=== PATIENT | male | born 1940 | race Caucasian/White ===

== ENCOUNTER 2023-05-21 19:03 | Observation (INO) ==
[2023-05-21] MEDS ORDERED: CEFEPIME 2,000 MG/20 ML VIAL IV STA (20:17)
[2023-05-21] MEDS: SODIUM CHLORIDE 0.9% 1,000 ML IV SCH ×2 (20:20→21:32)
--- NOTE | 2023-05-21 20:20 | Emergency Department Note ---
Impression & Plan Generalized weakness, Fever, SIRS (systemic inflammatory response syndrome), Thrombocytopenia ED Provider Note HISTORY OF PRESENT ILLNESS: Patient is an 82-year-old male presenting with generalized weakness. Patient reportedly started feeling generally weak yesterday but reports that the weakness was profound today. States that this evening the patient was getting ready for bed when she found him slumped over next to the bed because he was too weak to get fully into it. Patient denies any chest pain or shortness of breath. No reported fevers at home per family. He was recently around a grandson who had rhinorrhea and a fever. Per EMS, the patient was hypoxic to 89% on room air. He does not normally wear supplemental oxygen at baseline. He denies any abdominal pain, nausea or vomiting. Denies any dysuria or hematuria. ROS: as above PHYSICAL EXAM: Constitutional: Patient appears in no acute distress. HENT: Head: Normocephalic and atraumatic. Eyes: EOMI, PERRL Ears: TM intact without erythema or bulging. External canals without erythema or discharge. Mouth/Throat: Mucous membranes moist. Neck: Trachea midline. Neck supple. Cardiovascular: Tachycardic with regular rhythm. No murmurs, rubs or gallops. Intact distal pulses. Pulmonary/Chest: No respiratory distress. Breath sounds clear and equal bilaterally. No wheezes or rales. Abdominal: Abdomen soft, no tenderness, rebound or guarding. Musculoskeletal: No edema, tenderness or deformity noted. Skin: Warm and dry. No rash, erythema, pallor or cyanosis Psychiatric: Appropriate mood and affect for situation. Neurological: Alert and keenly responsive. CN II-XII grossly intact, moving all extremities equally and fully. MDM: - Vitals signs showed hypertension, tachycardia and fever. - History obtained via patient. Patient presents with generalized weakness. Patient reports he was feeling generally unwell yesterday but reports that weakness significantly worsened throughout the day today. He reports that this evening he was trying to get into bed and was too weak to do so. He does not wear supplemental oxygen at baseline. Denies any significant chest pain or shortness of breath. Was recently around her grandson who had runny nose and a fever. - Chronic conditions affecting care: none - Differential diagnoses include, but are not limited to: viral syndrome; ACS; pneumonia; UTI; bacteremia; electrolyte abnormality - Order placed for continuous cardiac monitoring. At this time, monitor showed rate of 102 bpm with normal sinus rhythm, per my interpretation. - External medical records reviewed. EMS run sheet reviewed. Patient was noted to be hypoxic on room air to 89% and was placed on 2 L supplemental oxygen. - EKG interpreted by myself showed normal sinus rhythm. Rate 95 bpm. QTc 434. No acute ischemic changes. Noted to have a right bundle branch block. - Laboratory workup interpreted by myself showed normal WBC; thrombocytopenia (plt 96); elevated lactate (2.1); normal electrolytes; normal troponin; negative procalcitonin; negative Lyme and anaplasmosis - Blood cultures obtained - CXR showed possible RLL pneumonia, per my interpretation - Viral respiratory panel negative - VBG normal - UA negative for bacteria. - Given 2L NS in ER for fluid resuscitation. Based on patient's ideal body weight, sepsis fluid resuscitation is 2100 mL. Ordered 125 cc/hr for next 8 hours. - Given IV cefepime empirically. Given 1g IV tylenol for fever - Discussion was had with long term care phlebotomist about patient's case and need for admission - Hospitalist consulted for admission - Patient admitted to [] service for further evaluation and management. ASSESSMENT AND PLAN: Diagnosis: fever; SIRS; thrombocytopenia; generalized weakness Plan: admit Past Med/Surg History Social History Smoking Status: Former smoker Preferred Language: Occitan Feels Safe at Home: Yes Allergies Allergies Allergy/AdvReac Type Severity Reaction Status Date / Time sulfamethoxazole Allergy Intermediate Hives Verified 05/21/23 21:41 [From Bactrim] trimethoprim [From Bactrim] Allergy Intermediate Hives Verified 05/21/23 21:41 Penicillins AdvReac Severe JOINTS Verified 05/21/23 21:41 SWELLED, STIFFENED Home Meds Home Medications Medication Instructions Recorded Confirmed aspirin 81 mg tablet,delayed 81 mg PO HS 05/21/23 05/21/23 release calcium carbonate 600 mg-vitamin 1 tab PO DAILY 05/21/23 05/21/23 D3 10 mcg (400 unit) tablet (Calcium 600 + D(3)) cholecalciferol (vitamin D3) 25 25 mcg PO DAILY 05/21/23 05/21/23 mcg (1,000 unit) capsule (Vitamin D3) citalopram 20 mg tablet 20 mg PO QAM 05/21/23 05/21/23 enalapril maleate 20 mg tablet 20 mg PO QAM 05/21/23 05/21/23 levothyroxine 75 mcg tablet 75 mcg PO QAM 05/21/23 05/21/23 meloxicam 15 mg tablet 15 mg PO QAM 05/21/23 05/21/23 mesalamine 0.375 gram 1.5 g PO QAM 05/21/23 05/21/23 capsule,extended release 24 hr primidone 50 mg tablet 50 mg PO TID 05/21/23 05/21/23 tamsulosin 0.4 mg capsule 0.4 mg PO QAM 05/21/23 05/21/23 vitamin A-vitamin C-vit E-min 1 tab PO DAILY 05/21/23 05/21/23 tablet Results & Data (ED) Vital Signs Vital Signs - 24 hr 05/21/23 19:11 05/21/23 19:11 05/21/23 19:22 Temperature 39.4 C H 39.7 C H Temperature Source Oral Oral Pulse Rate 103 H 100 H Pulse Rate [Apical] 100 H Pulse Rhythm Pulse Rhythm [Apical] Regular Pulse Strength [Apical] Normal Respiratory Rate 18 18 Respiratory Effort / Characteristics Non-Labored Non-Labored Spontaneous Respiratory Depth Normal Normal Respiratory Pattern Regular Blood Pressure 148/87 H Blood Pressure [Right Arm] 148/87 H Blood Pressure Mean 107 Blood Pressure Mean [Right Arm] 107 Blood Pressure Position [Right Arm] Lying Pulse Oximetry 99 96 Oxygen Delivery Method Nasal Cannula Room Air Oxygen Flow Rate 2 Sepsis Recent Fever Within 48 Hours Yes Sepsis New/Unexplained Change in Mental Status No Sepsis Action Taken by Nursing No Action Required 05/21/23 20:19 05/21/23 20:19 05/21/23 20:30 Temperature 38.8 C H Temperature Source Oral Pulse Rate 97 H Pulse Rate [Apical] 94 H 97 H Pulse Rhythm Regular Pulse Rhythm [Apical] Regular Regular Pulse Strength [Apical] Normal Normal Respiratory Rate 16 16 16 Respiratory Effort / Characteristics Non-Labored Spontaneous Non-Labored Spontaneous Respiratory Depth Normal Normal Respiratory Pattern Regular Regular Blood Pressure Blood Pressure [Right Arm] 148/97 H 155/86 H Blood Pressure Mean Blood Pressure Mean [Right Arm] 114 109 Blood Pressure Position [Right Arm] Lying Lying Pulse Oximetry 93 93 93 Oxygen Delivery Method Room Air Room Air Room Air Oxygen Flow Rate Sepsis Recent Fever Within 48 Hours Sepsis New/Unexplained Change in Mental Status Sepsis Action Taken by Nursing 05/21/23 20:45 05/21/23 21:00 05/21/23 21:15 Temperature Temperature Source Pulse Rate Pulse Rate [Apical] 96 H 97 H 99 H Pulse Rhythm Pulse Rhythm [Apical] Regular Regular Regular Pulse Strength [Apical] Normal Normal Normal Respiratory Rate 16 16 16 Respiratory Effort / Characteristics Non-Labored Spontaneous Non-Labored Spontaneous Non-Labored Spontaneous Respiratory Depth Normal Normal Normal Respiratory Pattern Regular Regular Regular Blood Pressure Blood Pressure [Right Arm] 152/89 H 162/86 H 144/101 H Blood Pressure Mean Blood Pressure Mean [Right Arm] 110 111 115 Blood Pressure Position [Right Arm] Lying Lying Lying Pulse Oximetry 94 93 92 Oxygen Delivery Method Room Air Room Air Room Air Oxygen Flow Rate Sepsis Recent Fever Within 48 Hours Sepsis New/Unexplained Change in Mental Status Sepsis Action Taken by Nursing 05/21/23 21:30 05/21/23 21:45 05/21/23 22:00 Temperature 37.5 C Temperature Source Oral Pulse Rate Pulse Rate [Apical] 98 H 99 H 101 H Pulse Rhythm Pulse Rhythm [Apical] Regular Regular Regular Pulse Strength [Apical] Normal Normal Normal Respiratory Rate 16 16 15 Respiratory Effort / Characteristics Non-Labored Spontaneous Non-Labored Spontaneous Non-Labored Spontaneous Respiratory Depth Normal Normal Normal Respiratory Pattern Regular Regular Regular Blood Pressure Blood Pressure [Right Arm] 151/88 H 161/101 H 142/92 H Blood Pressure Mean Blood Pressure Mean [Right Arm] 109 121 108 Blood Pressure Position [Right Arm] Lying Lying Lying Pulse Oximetry 93 92 93 Oxygen Delivery Method Room Air Room Air Room Air Oxygen Flow Rate Sepsis Recent Fever Within 48 Hours Sepsis New/Unexplained Change in Mental Status Sepsis Action Taken by Nursing 05/21/23 22:15 05/21/23 22:30 05/21/23 22:45 Temperature Temperature Source Pulse Rate Pulse Rate [Apical] 99 H 100 H 103 H Pulse Rhythm Pulse Rhythm [Apical] Regular Regular Regular Pulse Strength [Apical] Normal Normal Normal Respiratory Rate 16 16 16 Respiratory Effort / Characteristics Non-Labored Spontaneous Non-Labored Spontaneous Non-Labored Spontaneous Respiratory Depth Normal Normal Normal Respiratory Pattern Regular Regular Regular Blood Pressure Blood Pressure [Right Arm] 145/98 H 157/95 H 150/95 H Blood Pressure Mean Blood Pressure Mean [Right Arm] 113 115 113 Blood Pressure Position [Right Arm] Lying Lying Lying Pulse Oximetry 94 91 91 Oxygen Delivery Method Room Air Room Air Room Air Oxygen Flow Rate Sepsis Recent Fever Within 48 Hours Sepsis New/Unexplained Change in Mental Status Sepsis Action Taken by Nursing 05/21/23 23:00 05/21/23 23:15 05/21/23 23:30 Temperature 38.2 C H Temperature Source Oral Pulse Rate 103 H Pulse Rate [Apical] 104 H 111 H Pulse Rhythm Pulse Rhythm [Apical] Regular Regular Pulse Strength [Apical] Normal Normal Respiratory Rate 16 16 Respiratory Effort / Characteristics Non-Labored Spontaneous Non-Labored Spontaneous Respiratory Depth Normal Normal Respiratory Pattern Regular Regular Blood Pressure Blood Pressure [Right Arm] 169/97 H 187/99 H Blood Pressure Mean Blood Pressure Mean [Right Arm] 121 128 Blood Pressure Position [Right Arm] Lying Lying Pulse Oximetry 92 91 Oxygen Delivery Method Room Air Room Air Oxygen Flow Rate Sepsis Recent Fever Within 48 Hours Sepsis New/Unexplained Change in Mental Status Sepsis Action Taken by Nursing Laboratory Data 05/21/23 20:10 05/21/23 20:10 Lab Results 05/21/23 05/21/23 05/21/23 Range/Units 19:17 19:22 20:10 WBC 5.96 (4.8-10.8) K/ul RBC 4.24 L (4.70-6.10) M/uL Hgb 13.6 L (14.0-18.0) g/dl Hct 41.8 L (42.0-52.0) % MCV 98.6 (80.0-100.0) fL MCH 32.1 (25.0-34.0) pg MCHC 32.5 (32.0-36.0) g/dL RDW Std Deviation 46.8 H (36.4-46.3) fL RDW Coeff of Melva 13.1 (11.5-14.5) % Plt Count 96 L (130-400) K/uL MPV 9.9 (9.4-12.4) fL Immature Gran % (Auto) 0.5 % Neut % (Auto) 85.0 % Lymph % (Auto) 6.9 % Caroline % (Auto) 6.9 % Eos % (Auto) 0.5 % Baso % (Auto) 0.2 % Neut # (Auto) 5.07 (1.40-6.50) K/uL Lymph # (Auto) 0.41 L (1.20-3.40) K/uL Caroline # (Auto) 0.41 (0.11-0.59) K/uL Eos # (Auto) 0.03 (0.00-0.50) K/uL Baso # (Auto) 0.01 (0.00-0.20) K/uL Immature Gran # (Auto) 0.03 (0.01-0.20) K/uL Platelet Estimate Decreased L (Normal) VBG pH 7.38 (7.36-7.41) VBG pCO2 42 (38-50) mmHg VBG pO2 38 mmHg VBG HCO3 25 mmol/L VBG O2 Saturation 66.3 % VBG Base Excess -0.4 mEq/L Sodium 139 (136-145) mmol/L Potassium 4.5 (3.5-5.1) mmol/L Chloride 105 (98-107) mmol/L Carbon Dioxide 27 (21-32) mmol/L Anion Gap 7 (3-11) BUN 22 (6-23) mg/dl Creatinine 1.34 (0.6-1.4) mg/dl Est Cr Clr Drug Dosing 49.1 ml/min Est GFR ( Amer) 57.2 ml/min Est GFR (Non-Af Amer) 49.3 ml/min BUN/Creatinine Ratio 16.4 (10-20) Glucose 169 H (70-99(Fasting)) mg/dl Lactate 2.1 H* (0.4-2.0) mmol/L Calcium 8.9 (8.6-10.3) mg/dl Magnesium 2.0 (1.7-2.4) mg/dl Total Bilirubin 0.4 (0.2-1.0) mg/dl Direct Bilirubin 0.1 (0-0.2) mg/dl AST 19 (13-39) U/L ALT 21 (7-52) U/L Alkaline Phosphatase 91 (34-104) U/L Troponin I High Sens 11.3 (0-20) pg/ml Total Protein 7.1 (6.0-8.3) gm/dl Albumin 4.3 (3.4-5.0) gm/dl Procalcitonin < 0.05 (0-0.5) ng/ml Urine Color Yellow Urine Appearance Clear (Clear) Urine pH 5.0 (4.5-7.5) Ur Specific Hydro 1.017 (1.000-1.030) Urine Protein Negative (Negative) Urine Glucose (UA) Trace H (Negative) Urine Ketones Negative (Negative) Urine Blood Negative (Negative) Urine Nitrite Negative (Negative) Urine Bilirubin Negative (Negative) Urine Urobilinogen Negative (Negative) Ur Leukocyte Esterase 2+ H (Negative) Urine WBC (Auto) >30 H (0-5) /hpf Urine RBC (Auto) 0-4 (0-4) /hpf U Hyaline Cast (Auto) 1-5 (0-5) /lpf U Epithel Cells (Auto) 10-20 H (0-5) /lpf Urine Bacteria (Auto) Negative (Negative) Acetaminophen < 3 L (10-30) ug/ml Adenovirus (PCR) Not Detected (NotDetected) Anaplasma Smear See Comment B. pertussis DNA (PCR) Not Detected (NotDetected) B.parapertussis DNA PCR Not Detected (NotDetected) Lyme Disease IgG Ab Negative (Negative) Lyme Disease IgM Ab Negative (Negative) C. pneumoniae DNA (PCR) Not Detected (NotDetected) Coronavirus OC43 (PCR) Not Detected (NotDetected) Coronavirus HKU1 (PCR) Not Detected (NotDetected) Coronavirus 229E (PCR) Not Detected (NotDetected) SARS-CoV-2 (PCR) Not Detected (NotDetected) Coronavirus NL63 (PCR) Not Detected (NotDetected) Human Metapneumovir PCR Not Detected (NotDetected) Influenza Type A (PCR) Not Detected (NotDetected) Influenza Type B (PCR) Not Detected (NotDetected) M. pneumoniae (PCR) Not Detected (NotDetected) Parainfluenza 1 (PCR) Not Detected (NotDetected) Parainfluenza 2 (PCR) Not Detected (NotDetected) Parainfluenza 3 (PCR) Not Detected (NotDetected) Parainfluenza 4 (PCR) Not Detected (NotDetected) RSV (PCR) Not Detected (NotDetected) Entero/Rhino (PCR) Not Detected (NotDetected) 05/21/23 Range/Units 23:20 WBC (4.8-10.8) K/ul RBC (4.70-6.10) M/uL Hgb (14.0-18.0) g/dl Hct (42.0-52.0) % MCV (80.0-100.0) fL MCH (25.0-34.0) pg MCHC (32.0-36.0) g/dL RDW Std Deviation (36.4-46.3) fL RDW Coeff of Melva (11.5-14.5) % Plt Count (130-400) K/uL MPV (9.4-12.4) fL Immature Gran % (Auto) % Neut % (Auto) % Lymph % (Auto) % Caroline % (Auto) % Eos % (Auto) % Baso % (Auto) % Neut # (Auto) (1.40-6.50) K/uL Lymph # (Auto) (1.20-3.40) K/uL Caroline # (Auto) (0.11-0.59) K/uL Eos # (Auto) (0.00-0.50) K/uL Baso # (Auto) (0.00-0.20) K/uL Immature Gran # (Auto) (0.01-0.20) K/uL Platelet Estimate (Normal) VBG pH (7.36-7.41) VBG pCO2 (38-50) mmHg VBG pO2 mmHg VBG HCO3 mmol/L VBG O2 Saturation % VBG Base Excess mEq/L Sodium (136-145) mmol/L Potassium (3.5-5.1) mmol/L Chloride (98-107) mmol/L Carbon Dioxide (21-32) mmol/L Anion Gap (3-11) BUN (6-23) mg/dl Creatinine (0.6-1.4) mg/dl Est Cr Clr Drug Dosing ml/min Est GFR ( Amer) ml/min Est GFR (Non-Af Amer) ml/min BUN/Creatinine Ratio (10-20) Glucose (70-99(Fasting)) mg/dl Lactate 1.2 (0.4-2.0) mmol/L Calcium (8.6-10.3) mg/dl Magnesium (1.7-2.4) mg/dl Total Bilirubin (0.2-1.0) mg/dl Direct Bilirubin (0-0.2) mg/dl AST (13-39) U/L ALT (7-52) U/L Alkaline Phosphatase (34-104) U/L Troponin I High Sens (0-20) pg/ml Total Protein (6.0-8.3) gm/dl Albumin (3.4-5.0) gm/dl Procalcitonin (0-0.5) ng/ml Urine Color Urine Appearance (Clear) Urine pH (4.5-7.5) Ur Specific Hydro (1.000-1.030) Urine Protein (Negative) Urine Glucose (UA) (Negative) Urine Ketones (Negative) Urine Blood (Negative) Urine Nitrite (Negative) Urine Bilirubin (Negative) Urine Urobilinogen (Negative) Ur Leukocyte Esterase (Negative) Urine WBC (Auto) (0-5) /hpf Urine RBC (Auto) (0-4) /hpf U Hyaline Cast (Auto) (0-5) /lpf U Epithel Cells (Auto) (0-5) /lpf Urine Bacteria (Auto) (Negative) Acetaminophen (10-30) ug/ml Adenovirus (PCR) (NotDetected) Anaplasma Smear B. pertussis DNA (PCR) (NotDetected) B.parapertussis DNA PCR (NotDetected) Lyme Disease IgG Ab (Negative) Lyme Disease IgM Ab (Negative) C. pneumoniae DNA (PCR) (NotDetected) Coronavirus OC43 (PCR) (NotDetected) Coronavirus HKU1 (PCR) (NotDetected) Coronavirus 229E (PCR) (NotDetected) SARS-CoV-2 (PCR) (NotDetected) Coronavirus NL63 (PCR) (NotDetected) Human Metapneumovir PCR (NotDetected) Influenza Type A (PCR) (NotDetected) Influenza Type B (PCR) (NotDetected) M. pneumoniae (PCR) (NotDetected) Parainfluenza 1 (PCR) (NotDetected) Parainfluenza 2 (PCR) (NotDetected) Parainfluenza 3 (PCR) (NotDetected) Parainfluenza 4 (PCR) (NotDetected) RSV (PCR) (NotDetected) Entero/Rhino (PCR) (NotDetected) Administered Medications Discontinued Medications Sodium Chloride (Nss) 1,000 mls @ 999 mls/hr IV .[id number] MARCUS Stop: 05/21/23 22:00 Last Infusion: 05/21/23 23:00 Dose: Infused Documented By: Admin: 05/21/23 21:32 Dose: 999 mls/hr Documented By: Infusion: 05/21/23 21:32 Dose: Infused Documented By: Admin: 05/21/23 20:20 Dose: 999 mls/hr Documented By: IDD Cefepime HCl (Maxipime) 2,000 mg in 20 mls @ 5 mls/min IV NOW STA; Protocol Stop: 05/21/23 20:20 Last Admin: 05/21/23 20:40 Dose: 5 mls/min Documented By: IDD Discharge Plan Visit Data Chief Complaint: Illness Stated Complaint: WEAKNESS ED Provider: Keila Damon Discharge Problem: Generalized weakness, Fever, SIRS (systemic inflammatory response syndrome), Thrombocytopenia Forms Stand Alone Forms: [facility] Prescriptions Prescriptions: No Action primidone 50 mg tablet 50 mg PO TID enalapril maleate 20 mg tablet 20 mg PO QAM meloxicam 15 mg tablet 15 mg PO QAM aspirin 81 mg Tablet,Delayed Release (Dr/Ec) 81 mg PO HS levothyroxine 75 mcg tablet 75 mcg PO QAM citalopram 20 mg tablet 20 mg PO QAM tamsulosin 0.4 mg capsule 0.4 mg PO QAM cholecalciferol (vitamin D3) [Vitamin D3] 25 mcg (1,000 unit) Capsule 25 mcg PO DAILY Ocuvite Tablet 1 tab PO DAILY calcium carbonate-vitamin D3 [Calcium 600 + D(3)] 600 mg-10 mcg (400 unit) Tablet 1 tab PO DAILY mesalamine 0.375 gram capsule,extended release 24hr 1.5 g PO QAM Referrals Referrals: PCP,NO [Primary Care Provider] -
[2023-05-21 20:21] LABS: Appearance Urine Clear (Clear); Bacteria Urine Automated Negative (Negative); Bilirubin Urine Negative (Negative); Blood Urine Negative (Negative); Color Urine Yellow; Glucose Urine UA Trace (Negative); Ketones Urine Negative (Negative); Leukocyte Esterase Urine 2+ (Negative); Nitrite Urine Negative (Negative); Protein Urine Negative (Negative); RBC Urine Automated 0-4 /hpf (0-4); Specific Gravity Urine 1.017 (1.000-1.030); Urobilinogen Urine Negative (Negative); WBC Urine Automated >30 /hpf (0-5)
[2023-05-21 20:21] LABS: Base Excess VBG -0.4 mEq/L; HCO3 VBG 25 mmol/L; Oxygen Saturation VBG 66.3 %; PCO2 VBG 42 mmHg (38-50); PO2 VBG 38 mmHg; pH VBG 7.38 (7.36-7.41)
[2023-05-21 20:43] LABS: Albumin Level 4.3 gm/dl (3.4-5.0); BUN Creatinine Ratio 16.4 (10-20); Bilirubin Direct 0.1 mg/dl (0-0.2); Bilirubin,Total 0.4 mg/dl (0.2-1.0); Calcium 8.9 mg/dl (8.6-10.3); Creatinine Clr Calc Pharmacy 49.1 ml/min; Est GFR (African American) 57.2 ml/min; Est GFR (Non-African American) 49.3 ml/min; Potassium 4.5 mmol/L (3.5-5.1); Total Protein 7.1 gm/dl (6.0-8.3)
[2023-05-21 20:44] LABS: Adenovirus PCR Not Detected (NotDetected); Bordetella parapertussis PCR Not Detected (NotDetected); Bordetella pertussis PCR Not Detected (NotDetected); Chlamydia pneumoniae PCR Not Detected (NotDetected); Coronavirus 229E PCR Not Detected (NotDetected); Coronavirus CoV-2 (COVID19)PCR Not Detected (NotDetected); Coronavirus HKU1 PCR Not Detected (NotDetected); Coronavirus NL63 PCR Not Detected (NotDetected); Coronavirus OC43PCR Not Detected (NotDetected); Human Metapneumovirus PCR Not Detected (NotDetected); Influenza A PCR Not Detected (NotDetected); Influenza B PCR Not Detected (NotDetected); Mycoplasma pneumoniae PCR Not Detected (NotDetected); Parainfluenza Virus 1 PCR Not Detected (NotDetected); Parainfluenza Virus 2 PCR Not Detected (NotDetected); Parainfluenza Virus 3 PCR Not Detected (NotDetected); Parainfluenza Virus 4 PCR Not Detected (NotDetected); Respiratory Syncytial VirusPCR Not Detected (NotDetected); Rhinovirus/Enterovirus PCR Not Detected (NotDetected)
[2023-05-21 20:44] LABS: Basophils # (auto) 0.01 K/uL (0.00-0.20); Basophils % (auto) 0.2 %; Eosinophils # (auto) 0.03 K/uL (0.00-0.50); Eosinophils % (auto) 0.5 %; Hematocrit (blood only) 41.8 % (42.0-52.0); Hemoglobin 13.6 g/dl (14.0-18.0); Immature Granulocytes # (auto) 0.03 K/uL (0.01-0.20); Immature Granulocytes % (auto) 0.5 %; Lymphocytes # (auto) 0.41 K/uL (1.20-3.40); Lymphocytes % (auto) 6.9 %; Mean Corpuscular Hemoglobin 32.1 pg (25.0-34.0); Mean Corpuscular Hgb Conc 32.5 g/dL (32.0-36.0); Mean Corpuscular Volume 98.6 fL (80.0-100.0); Mean Platelet Volume 9.9 fL (9.4-12.4); Monocytes # (auto) 0.41 K/uL (0.11-0.59); Monocytes % (auto) 6.9 %; Neutrophils # (auto) 5.07 K/uL (1.40-6.50); Platelet Count 96 K/uL (130-400); Platelet Estimate Decreased (Normal); RDW Coefficient of Variation 13.1 % (11.5-14.5); RDW Standard Deviation 46.8 fL (36.4-46.3); Red Blood Count 4.24 M/uL (4.70-6.10); White Blood Count 5.96 K/ul (4.8-10.8)
[2023-05-21 20:50] LABS: Troponin I High Sensitivity 11.3 pg/ml (0-20)
[2023-05-21 21:52] LABS: Lyme Ab IgG w/WB Rflx Negative (Negative); Lyme Ab IgM w/WB Rflx Negative (Negative)
[2023-05-21] MEDS ORDERED: SODIUM CHLORIDE 0.9% 1,000 ML IV STA (23:48)
--- NOTE | 2023-05-22 01:20 | History & Physical Report ---
Date of Service May 22, 2023 Assessment & Plan (1) SIRS (systemic inflammatory response syndrome): Plan: 82-year-old male with past medical history significant for hypertension, hypothyroidism, BPH, depression, obstructive sleep apnea, history of lung cancer status chemoradiation about a 1 and half year ago and no recurrence as per patient presents because of fevers , cough, runny nose and sore throat and bodyaches since yesterday. Patient not feeling good at all. Poor appetite. Very weak and tired. Seems recently was around grandchild who had rhinorrhea. States has chest pain while coughing. Denies shortness of breath. No nausea. No abdominal pain. Normal bowel movements. Says he has some urgency of micturition. Denies any burning micturition. Resting comfortably. Ambulates with cane SIRS Having fever, tachycardia Lactic acid 2.1 on presentation repeat is 1.2 after fluids Respiratory bio fire negative Lyme screen and Anaplasma screen negative Possible UTI Possible viral syndrome Supportive care with fluids and Tylenol as needed IV cefepime until cultures available Close monitor Possible acute bronchitis Has wheezing on exam Has respiratory symptoms Possible viral bronchitis Short course of steroids and nebs as needed Possible UTI On cefepime Follow cultures Thrombocytopenia We do not have baseline labs Possibly from SIRS Follow repeat labs Lower extremity edema Has wheezing on exam Will follow echo Abnormal EKG No previous EKG to compare Follow troponin and echo Obstructive sleep apnea CPAP nightly Hypertension Enalapril with holding parameters Hypothyroidism On Synthyroid Follow TSH BPH On Flomax Depression On citalopram DVT prophylaxis SCDs for now Disposition Med/tele Full code History of Present Illness Chief Complaint: Fever and illness Primary Care Provider: NO PCP 82-year-old male with past medical history significant for hypertension, hypothyroidism, BPH, depression, obstructive sleep apnea, history of lung cancer status chemoradiation about a 1 and half year ago and no recurrence as per patient presents because of fevers , cough, runny nose and sore throat and bodyaches since yesterday. Patient not feeling good at all. Poor appetite. Very weak and tired. Seems recently was around grandchild who had rhinorrhea. States has chest pain while coughing. Denies shortness of breath. No nausea. No abdominal pain. Normal bowel movements. Says he has some urgency of micturition. Denies any burning micturition. Resting comfortably. Ambulates with cane Past medical history. As mentioned above Past surgical history back surgery Social history. Remote history of smoking. No alcohol. Lives with his . Family history. Father had diabetes. Mother had heart disease. Allergies Allergy/AdvReac Type Severity Reaction Status Date / Time sulfamethoxazole Allergy Intermediate Hives Verified 05/21/23 21:41 [From Bactrim] trimethoprim [From Bactrim] Allergy Intermediate Hives Verified 05/21/23 21:41 Penicillins AdvReac Severe JOINTS Verified 05/21/23 21:41 SWELLED, STIFFENED Home Medications Medication Instructions Recorded Confirmed Type aspirin 81 mg tablet,delayed 81 mg PO HS 05/21/23 05/21/23 History release calcium carbonate 600 mg-vitamin 1 tab PO DAILY 05/21/23 05/21/23 History D3 10 mcg (400 unit) tablet (Calcium 600 + D(3)) cholecalciferol (vitamin D3) 25 25 mcg PO DAILY 05/21/23 05/21/23 History mcg (1,000 unit) capsule (Vitamin D3) citalopram 20 mg tablet 20 mg PO QAM 05/21/23 05/21/23 History enalapril maleate 20 mg tablet 20 mg PO QAM 05/21/23 05/21/23 History levothyroxine 75 mcg tablet 75 mcg PO QAM 05/21/23 05/21/23 History meloxicam 15 mg tablet 15 mg PO QAM 05/21/23 05/21/23 History mesalamine 0.375 gram 1.5 g PO QAM 05/21/23 05/21/23 History capsule,extended release 24 hr primidone 50 mg tablet 50 mg PO TID 05/21/23 05/21/23 History tamsulosin 0.4 mg capsule 0.4 mg PO QAM 05/21/23 05/21/23 History vitamin A-vitamin C-vit E-min 1 tab PO DAILY 05/21/23 05/21/23 History tablet Past Med/Surg History Social History Smoking Status: Former smoker Tobacco Type: Cigarettes Cigarettes Per Day: 1 PPD; Smoking End Date: 30 years ago; Second Hand Exposure: No; Tobacco Cessation Education Requested by Patient: No Hx Alcohol Use: No Hx Substance Use: No Preferred Language: Omani Communication Ability: Effective Trial Paralegal Required: No Beliefs That Will Affect Care: None Current Living Situation: Spouse Current Living Situation Comment: Lives w/ spouse at home Other Information That Helps Us Care for You: No Feels Safe at Home: Yes Safety Concerns: Feels Safe At This Time Assistive Devices: Cane, CPAP and Hearing Aid - Bilateral Review of Systems Review of Systems: All systems reviewed & are unremarkable except as noted in HPI & below Physical Exam Physical Exam: General- Not in distress Head- atraumatic Eyes- PERRL. ENT- oropharynx clear Neck- supple, no JVD. Lungs- clear to auscultation b/l mild wheezing no crackles. Heart- regular rhythm; no murmur, no gallop. Abdomen- normal bowel sounds, soft, nontender, no distension. Extremities- pretibial edema present, no erythema seen. Neuro- alert, oriented x 3; PERRL, no facial palsy; no dysarthria; moves extremities. Skin- warm & dry Results & Data Results & Data Vital Signs (Past 12 Hours) Vital Signs Temp Pulse Pulse Resp BP BP Pulse Ox 05/22/23 01:00 38.0 C H 99 H 16 146/84 H 91 05/22/23 01:00 38.0 C H 99 H 16 146/84 H 91 05/21/23 23:30 103 H 05/21/23 23:15 111 H 16 187/99 H 91 05/21/23 23:00 38.2 C H 104 H 16 169/97 H 92 05/21/23 22:45 103 H 16 150/95 H 91 05/21/23 22:30 100 H 16 157/95 H 91 05/21/23 22:15 99 H 16 145/98 H 94 05/21/23 22:00 101 H 15 142/92 H 93 05/21/23 21:45 99 H 16 161/101 H 92 05/21/23 21:30 37.5 C 98 H 16 151/88 H 93 05/21/23 21:15 99 H 16 144/101 H 92 05/21/23 21:00 97 H 16 162/86 H 93 05/21/23 20:45 96 H 16 152/89 H 94 05/21/23 20:30 38.8 C H 97 H 16 155/86 H 93 05/21/23 20:19 94 H 16 148/97 H 93 05/21/23 20:19 97 H 16 93 05/21/23 19:22 100 H 05/21/23 19:11 39.7 C H 100 H 18 148/87 H 96 05/21/23 19:11 39.4 C H 103 H 18 148/87 H 99 O2 Del Method O2 Flow Rate 05/22/23 01:00 Room Air 05/22/23 01:00 Room Air 05/21/23 23:30 05/21/23 23:15 Room Air 05/21/23 23:00 Room Air 05/21/23 22:45 Room Air 05/21/23 22:30 Room Air 05/21/23 22:15 Room Air 05/21/23 22:00 Room Air 05/21/23 21:45 Room Air 05/21/23 21:30 Room Air 05/21/23 21:15 Room Air 05/21/23 21:00 Room Air 05/21/23 20:45 Room Air 05/21/23 20:30 Room Air 05/21/23 20:19 Room Air 05/21/23 20:19 Room Air 05/21/23 19:22 05/21/23 19:11 Room Air 05/21/23 19:11 Nasal Cannula 2 Diagnostic Findings Laboratory Results WBC 5.96 K/ul (4.8-10.8) 05/21/23 20:10 RBC 4.24 M/uL (4.70-6.10) L 05/21/23 20:10 Hgb 13.6 g/dl (14.0-18.0) L 05/21/23 20:10 Hct 41.8 % (42.0-52.0) L 05/21/23 20:10 MCV 98.6 fL (80.0-100.0) 05/21/23 20:10 MCH 32.1 pg (25.0-34.0) 05/21/23 20:10 MCHC 32.5 g/dL (32.0-36.0) 05/21/23 20:10 RDW Std Deviation 46.8 fL (36.4-46.3) H 05/21/23 20:10 RDW Coeff of Melva 13.1 % (11.5-14.5) 05/21/23 20:10 Plt Count 96 K/uL (130-400) L 05/21/23 20:10 MPV 9.9 fL (9.4-12.4) 05/21/23 20:10 Immature Gran % (Auto) 0.5 % 05/21/23 20:10 Neut % (Auto) 85.0 % 05/21/23 20:10 Lymph % (Auto) 6.9 % 05/21/23 20:10 [place] % (Auto) 6.9 % 05/21/23 20:10 Eos % (Auto) 0.5 % 05/21/23 20:10 Baso % (Auto) 0.2 % 05/21/23 20:10 Neut # (Auto) 5.07 K/uL (1.40-6.50) 05/21/23 20:10 Lymph # (Auto) 0.41 K/uL (1.20-3.40) L 05/21/23 20:10 [place] # (Auto) 0.41 K/uL (0.11-0.59) 05/21/23 20:10 Eos # (Auto) 0.03 K/uL (0.00-0.50) 05/21/23 20:10 Baso # (Auto) 0.01 K/uL (0.00-0.20) 05/21/23 20:10 Immature Gran # (Auto) 0.03 K/uL (0.01-0.20) 05/21/23 20:10 Platelet Estimate Decreased (Normal) L 05/21/23 20:10 VBG pH 7.38 (7.36-7.41) 05/21/23 20:10 VBG pCO2 42 mmHg (38-50) 05/21/23 20:10 VBG pO2 38 mmHg 05/21/23 20:10 VBG HCO3 25 mmol/L 05/21/23 20:10 VBG O2 Saturation 66.3 % 05/21/23 20:10 VBG Base Excess -0.4 mEq/L 05/21/23 20:10 Sodium 139 mmol/L (136-145) 05/21/23 20:10 Potassium 4.5 mmol/L (3.5-5.1) 05/21/23 20:10 Chloride 105 mmol/L (98-107) 05/21/23 20:10 Carbon Dioxide 27 mmol/L (21-32) 05/21/23 20:10 Anion Gap 7 (3-11) 05/21/23 20:10 BUN 22 mg/dl (6-23) 05/21/23 20:10 Creatinine 1.34 mg/dl (0.6-1.4) 05/21/23 20:10 Est Cr Clr Drug Dosing 49.1 ml/min 05/21/23 20:10 Est GFR ( Amer) 57.2 ml/min 05/21/23 20:10 Est GFR (Non-Af Amer) 49.3 ml/min 05/21/23 20:10 BUN/Creatinine Ratio 16.4 (10-20) 05/21/23 20:10 Glucose 169 mg/dl (70-99(Fasting)) H 05/21/23 20:10 Lactate 1.2 mmol/L (0.4-2.0) 05/21/23 23:20 Calcium 8.9 mg/dl (8.6-10.3) 05/21/23 20:10 Magnesium 2.0 mg/dl (1.7-2.4) 05/21/23 20:10 Total Bilirubin 0.4 mg/dl (0.2-1.0) 05/21/23 20:10 Direct Bilirubin 0.1 mg/dl (0-0.2) 05/21/23 20:10 AST 19 U/L (13-39) 05/21/23 20:10 ALT 21 U/L (7-52) 05/21/23 20:10 Alkaline Phosphatase 91 U/L (34-104) 05/21/23 20:10 Troponin I High Sens 11.3 pg/ml (0-20) 05/21/23 20:10 Total Protein 7.1 gm/dl (6.0-8.3) 05/21/23 20:10 Albumin 4.3 gm/dl (3.4-5.0) 05/21/23 20:10 Procalcitonin < 0.05 ng/ml (0-0.5) 05/21/23 20:10 Urine Color Yellow 05/21/23 19:22 Urine Appearance Clear (Clear) 05/21/23 19:22 Urine pH 5.0 (4.5-7.5) 05/21/23 19:22 Ur Specific [place] 1.017 (1.000-1.030) 05/21/23 19:22 Urine Protein Negative (Negative) 05/21/23 19:22 Urine Glucose (UA) Trace (Negative) H 05/21/23 19:22 Urine Ketones Negative (Negative) 05/21/23 19:22 Urine Blood Negative (Negative) 05/21/23 19:22 Urine Nitrite Negative (Negative) 05/21/23 19:22 Urine Bilirubin Negative (Negative) 05/21/23 19:22 Urine Urobilinogen Negative (Negative) 05/21/23 19:22 Ur Leukocyte Esterase 2+ (Negative) H 05/21/23 19:22 Urine WBC (Auto) >30 /hpf (0-5) H 05/21/23 19:22 Urine RBC (Auto) 0-4 /hpf (0-4) 05/21/23 19:22 U Hyaline Cast (Auto) 1-5 /lpf (0-5) 05/21/23 19:22 U Epithel Cells (Auto) 10-20 /lpf (0-5) H 05/21/23 19:22 Urine Bacteria (Auto) Negative (Negative) 05/21/23 19:22 Acetaminophen < 3 ug/ml (10-30) L 05/21/23 20:10 Adenovirus (PCR) Not Detected (NotDetected) 05/21/23 19:17 Anaplasma Smear See Comment 05/21/23 20:10 B. pertussis DNA (PCR) Not Detected (NotDetected) 05/21/23 19:17 B.parapertussis DNA PCR Not Detected (NotDetected) 05/21/23 19:17 Lyme Disease IgG Ab Negative (Negative) 05/21/23 20:10 Lyme Disease IgM Ab Negative (Negative) 05/21/23 20:10 C. pneumoniae DNA (PCR) Not Detected (NotDetected) 05/21/23 19:17 Coronavirus OC43 (PCR) Not Detected (NotDetected) 05/21/23 19:17 Coronavirus HKU1 (PCR) Not Detected (NotDetected) 05/21/23 19:17 Coronavirus 229E (PCR) Not Detected (NotDetected) 05/21/23 19:17 SARS-CoV-2 (PCR) Not Detected (NotDetected) 05/21/23 19:17 Coronavirus NL63 (PCR) Not Detected (NotDetected) 05/21/23 19:17 Human Metapneumovir PCR Not Detected (NotDetected) 05/21/23 19:17 Influenza Type A (PCR) Not Detected (NotDetected) 05/21/23 19:17 Influenza Type B (PCR) Not Detected (NotDetected) 05/21/23 19:17 M. pneumoniae (PCR) Not Detected (NotDetected) 05/21/23 19:17 Parainfluenza 1 (PCR) Not Detected (NotDetected) 05/21/23 19:17 Parainfluenza 2 (PCR) Not Detected (NotDetected) 05/21/23 19:17 Parainfluenza 3 (PCR) Not Detected (NotDetected) 05/21/23 19:17 Parainfluenza 4 (PCR) Not Detected (NotDetected) 05/21/23 19:17 RSV (PCR) Not Detected (NotDetected) 05/21/23 19:17 Entero/Rhino (PCR) Not Detected (NotDetected) 05/21/23 19:17 ECG Additional Comments: ECG. Sinus rhythm with PACs with rate of 95. T wave inversions inferolateral leads no previous ECG to compare Code Status & VTE Plan VTE Prophylaxis Plan VTE Prophylaxis will be ordered: Yes
[2023-05-22] MEDS ORDERED: LEVALBUTEROL 1.25 MG/3 ML NEB NEB PRN (03:54)
[2023-05-22] MEDS ORDERED: D5W AND NSS 1,000 ML IV SCH (03:54)
[2023-05-22] MEDS ORDERED: NITROGLYCERIN SL 0.4 MG/TAB TAB SL PRN (03:54)
[2023-05-22 05:22] LABS: Basophils # (auto) 0.02 K/uL (0.00-0.20); Basophils % (auto) 0.4 %; Eosinophils # (auto) 0.01 K/uL (0.00-0.50); Eosinophils % (auto) 0.2 %; Hematocrit (blood only) 36.1 % (42.0-52.0); Hemoglobin 11.8 g/dl (14.0-18.0); Immature Granulocytes # (auto) 0.02 K/uL (0.01-0.20); Immature Granulocytes % (auto) 0.4 %; Lymphocytes # (auto) 0.51 K/uL (1.20-3.40); Lymphocytes % (auto) 9.6 %; Mean Corpuscular Hemoglobin 32.3 pg (25.0-34.0); Mean Corpuscular Hgb Conc 32.7 g/dL (32.0-36.0); Mean Corpuscular Volume 98.9 fL (80.0-100.0); Monocytes # (auto) 0.58 K/uL (0.11-0.59); Monocytes % (auto) 10.9 %; Neutrophils # (auto) 4.17 K/uL (1.40-6.50); Neutrophils % (auto) 78.5 %; Platelet Count 95 K/uL (130-400); RDW Coefficient of Variation 13.1 % (11.5-14.5); RDW Standard Deviation 47.3 fL (36.4-46.3); Red Blood Count 3.65 M/uL (4.70-6.10); White Blood Count 5.31 K/ul (4.8-10.8)
[2023-05-22 05:28] LABS: BUN Creatinine Ratio 15.5 (10-20); Creatinine Clr Calc Pharmacy 55.9 ml/min; Est GFR (African American) 68.1 ml/min; Est GFR (Non-African American) 58.7 ml/min; Magnesium 1.9 mg/dl (1.7-2.4)
[2023-05-22 05:34] LABS: Troponin I High Sensitivity 11.2 pg/ml (0-20)
[2023-05-22] MEDS: LEVOTHYROXINE SODIUM 75 MCG TABLET PO SCH ×2 (05:36→05:41)
[2023-05-22 05:43] LABS: Thyroid Stimulating Hormone 3.201 uIu/ml (0.300-4.500)
[2023-05-22] MEDS: DOXYCYCLINE HYCLATE 100 MG in DEXTROSE 5% MINI-B 100 ML IV SCH ×2 (05:43→17:53)
--- NOTE | 2023-05-22 06:52 | Electrocardiogram Report ---
Test Reason : Blood Pressure : / mmHG Vent. Rate : 095 BPM Atrial Rate : 095 BPM P-R Int : 182 ms QRS Dur : 134 ms QT Int : 346 ms P-R-T Axes : 063 068 019 degrees QTc Int : 434 ms Sinus rhythm with Premature atrial complexes Right bundle branch block T wave abnormality, consider inferolateral ischemia Abnormal ECG No previous ECGs available Confirmed by Cecilio Uribe ([id number]) on 05/22/2023 6:51:47 AM Referred By: REFERRED SELF Confirmed By:Cecilio Uribe
--- NOTE | 2023-05-22 09:26 | XRay Report ---
XR chest 1V portable CLINICAL HISTORY: Sepsis TECHNIQUE: Single frontal radiograph of the chest was obtained. Comparison: None available at the time of this dictation. FINDINGS: No lines and tubes are seen. Cardiomegaly is noted. The aortic arch is calcified. Prominence and ceph alization of the vasculature is seen. No evidence of pleural effusion or pneumothorax. IMPRESSION: Cardiomegaly and mild pulmonary edema. Pneumonia is seen. ACT 112: Negative or not required by law. Electronically signed by: Ramone Hoffman M.D. 05/22/2023 9:25 AM
[2023-05-22] MEDS ORDERED: PERFLUTREN LIPID MICROSPHERE (DEFINITY) IV ONE (09:42)
[2023-05-22] MEDS: CEROVITE ADV FORMULA TAB PO SCH (09:43)
[2023-05-22] MEDS: TAMSULOSIN HCL 0.4 MG CAP PO SCH (09:43)
[2023-05-22] MEDS: PRIMIDONE 50 MG TAB PO SCH ×3 (09:44→20:30)
[2023-05-22] MEDS: CITALOPRAM 20 MG TAB PO SCH (09:44)
[2023-05-22] MEDS: predniSONE 20 MG TAB PO SCH (09:44)
[2023-05-22] MEDS: CALCIUM 600MG + VIT D 400 IU TAB PO SCH (09:44)
[2023-05-22] MEDS: ENALAPRIL MALEATE 10 MG TAB PO SCH (09:45)
[2023-05-22] MEDS: CHOLECALCIFEROL 1,000 UNITS 25 MCG TAB PO SCH (09:45)
[2023-05-22] MEDS: CEFEPIME 2,000 MG in SYRINGE 0 ML IV SCH ×2 (09:47→21:09)
[2023-05-22] MEDS: SODIUM CHLOR 7% 4 ML NEB NEB SCH ×2 (11:57→19:50)
[2023-05-22] MEDS: ALBUT/IPRATROP 3MG/0.5MG NEB 3 ML VIAL NEB SCH ×3 (11:57→19:50)
--- NOTE | 2023-05-22 13:26 | Communication Note ---
Date of Service: May 22, 2023 Patient seen and examined at bedside. He is sitting up on the chair at the side of the bed. He reports sore throat and cough. Chest x-ray shows infiltrate on right midlung base. Cardiomegaly present. On physical exam; Constitutional: Alert oriented x 3; not in distress. Respiratory: Decreased breath sound on right middle lung field. Cardiovascular: RRR, no murmur, no edema Vessels: no JVD or carotid bruit Chest: normal inspection of chest Abdomen: normal bowel sounds, soft, nontender, no hepatosplenomegaly Musculoskeletal: no cyanosis or clubbing, extremities motor strength 5/5 Skin: no rashes, warm and dry normal turgor Neurologic: PERRL, EOMI, accommodation nl, no face palsy, no dysarthria CN's II- XI intact bilaterally and moves all extremities Psychiatric: A+Ox3, euthymic affect Assessment/plan Sepsis likely secondary to pneumonia Continue on cefepime and doxycycline Awaiting blood culture results. Monitor oxygen status; SpO2 of greater than 92%. Continue on prednisone for 5 days. DuoNeb every 6 hour and hypertonic saline Hypertensioncontinue enalapril Mood disordercontinue citalopram BPHcontinue tamsulosin PT OT ordered
[2023-05-22] MEDS: ACETAMINOPHEN 325 MG TAB PO PRN (17:52)
[2023-05-22] MEDS: ASPIRIN 81 MG ECTAB PO SCH (20:30)
[2023-05-23 04:55] LABS: Eosinophils # (auto) 0.01 K/uL (0.00-0.50); Eosinophils % (auto) 0.2 %; Hematocrit (blood only) 32.8 % (42.0-52.0); Immature Granulocytes # (auto) 0.01 K/uL (0.01-0.20); Immature Granulocytes % (auto) 0.2 %; Lymphocytes # (auto) 0.51 K/uL (1.20-3.40); Lymphocytes % (auto) 11.5 %; Mean Corpuscular Hemoglobin 32.4 pg (25.0-34.0); Mean Corpuscular Hgb Conc 33.5 g/dL (32.0-36.0); Mean Corpuscular Volume 96.8 fL (80.0-100.0); Mean Platelet Volume 9.7 fL (9.4-12.4); Monocytes # (auto) 0.69 K/uL (0.11-0.59); Monocytes % (auto) 15.5 %; Neutrophils # (auto) 3.23 K/uL (1.40-6.50); Neutrophils % (auto) 72.6 %; Platelet Count 93 K/uL (130-400); RDW Coefficient of Variation 13.1 % (11.5-14.5); RDW Standard Deviation 46.3 fL (36.4-46.3); Red Blood Count 3.39 M/uL (4.70-6.10); White Blood Count 4.45 K/ul (4.8-10.8)
[2023-05-23] MEDS: DOXYCYCLINE HYCLATE 100 MG in DEXTROSE 5% MINI-B 100 ML IV SCH ×2 (05:01→18:16)
[2023-05-23 06:25] LABS: Calcium 8.2 mg/dl (8.6-10.3); Creatinine Clr Calc Pharmacy 57.4 ml/min; Est GFR (African American) 70.3 ml/min; Est GFR (Non-African American) 60.6 ml/min; Potassium 3.7 mmol/L (3.5-5.1)
[2023-05-23] MEDS: ALBUT/IPRATROP 3MG/0.5MG NEB 3 ML VIAL NEB SCH ×4 (07:14→19:18)
[2023-05-23] MEDS: SODIUM CHLOR 7% 4 ML NEB NEB SCH ×2 (07:14→19:18)
[2023-05-23] MEDS: ENALAPRIL MALEATE 10 MG TAB PO SCH (10:25)
[2023-05-23] MEDS: predniSONE 20 MG TAB PO SCH (10:26)
[2023-05-23] MEDS: PRIMIDONE 50 MG TAB PO SCH ×3 (10:26→20:16)
[2023-05-23] MEDS: CALCIUM 600MG + VIT D 400 IU TAB PO SCH (10:26)
[2023-05-23] MEDS: CEFEPIME 2,000 MG in SYRINGE 0 ML IV SCH ×2 (10:26→20:20)
[2023-05-23] MEDS: CHOLECALCIFEROL 1,000 UNITS 25 MCG TAB PO SCH (10:26)
[2023-05-23] MEDS: CEROVITE ADV FORMULA TAB PO SCH (10:27)
[2023-05-23] MEDS: CITALOPRAM 20 MG TAB PO SCH (10:27)
[2023-05-23] MEDS: TAMSULOSIN HCL 0.4 MG CAP PO SCH (10:27)
[2023-05-23] MEDS: ACETAMINOPHEN 325 MG TAB PO PRN ×2 (10:28→14:27)
--- NOTE | 2023-05-23 15:10 | Hospitalist Progress Note ---
Date of Service May 23, 2023 Assessment & Plan (1) SIRS (systemic inflammatory response syndrome): Plan: 82-year-old male with past medical history significant for hypertension, hypothyroidism, BPH, depression, obstructive sleep apnea, history of lung cancer status chemoradiation about a 1 and half year ago and no recurrence as per patient presents because of fevers , cough, runny nose and sore throat and bodyaches since yesterday. Patient not feeling good at all. Poor appetite. Very weak and tired. Seems recently was around grandchild who had rhinorrhea. States has chest pain while coughing. Denies shortness of breath. No nausea. No abdominal pain. Normal bowel movements. Says he has some urgency of micturition. Denies any burning micturition. Resting comfortably. Ambulates with cane Sepsis POA Pneumonia Patient presented to the hospital with fever, chills, sore throat and cough Lactic acid 2.1 on presentation repeat is 1.2 after fluids Respiratory bio fire negative Lyme screen and Anaplasma screen negative Chest x-ray shows infiltrate on right midlung field. Cardiomegaly with vascular congestion. Blood cultureno growth till date. Urine culture3 types of organism all moderate count. Currently on cefepime and doxycycline. Plan to treat for total of 7 days DuoNebs and hypertonic saline for airway clearance 5 days of prednisone Possible UTI Rule out Patient complaining of urgency Urine culture3 types of organism all moderate count. Thrombocytopenia No baseline labs to compare. Continue to monitor. Lower extremity edema Echocardiogram shows EF of 50 to 55% with grade 1 diastolic dysfunction Abnormal EKG EKG on admission shows normal sinus rhythm with right bundle branch block. No previous EKG to compare. Echocardiogram as above Obstructive sleep apnea CPAP nightly Hypertension Enalapril with holding parameters Hypothyroidism On Synthyroid Follow TSH BPH On Flomax Depression On citalopram DVT prophylaxis SCDs for now given thrombocytopenia Disposition Possible discharge in a.m. if patient continues to remain clinically stable. Time spent evaluating patient, direct bedside care, chart review, placing orders, interpretation of diagnostic studies, discussion with consultants, patient, and family members, as well as other required patient management activities is 50 minutes Please note the above document was generated using voice recognition software. It may contain grammatical, syntax or spelling errors. Any formal questions or concerns about the content, text or information contained within the body of this dictation should be directly addressed to the provider for clarification Admission and Anticipated Discharge Date Admission Date: May 22, 2023 Subjective Patient seen and examined at bedside. He is sitting up on the chair; not in distress. He reports that he is feeling better than yesterday. Reports that his cough has improved. No shortness of breath reported. Review of Systems Review of Systems: All systems reviewed & are unremarkable except as noted in Subjective Physical Exam Physical Exam: General- Not in distress Head- atraumatic Eyes- PERRL. ENT- oropharynx clear Neck- supple, no JVD. Lungs-occasional crackles heard on right lung base Heart- regular rhythm; no murmur, no gallop. Abdomen- normal bowel sounds, soft, nontender, no distension. Extremities- pretibial edema present, no erythema seen. Neuro- alert, oriented x 3; PERRL, no facial palsy; no dysarthria; moves extremities. Skin- warm & dry Results & Data Results & Data Vital Signs (Past 12 Hours) Vital Signs Temp Pulse Pulse Resp BP Pulse Ox O2 Del Method 05/23/23 11:10 99 H 05/23/23 10:57 Room Air 05/23/23 10:52 37.6 C H 92 H 19 121/73 95 Room Air 05/23/23 07:48 37.3 C 99 H 19 130/77 90 CPAP 05/23/23 07:14 94 H 18 88 L Room Air 05/23/23 04:40 36.7 C 80 20 129/68 93 Room Air, CPAP
[2023-05-23] MEDS: ASPIRIN 81 MG ECTAB PO SCH (20:16)
--- NOTE | 2023-05-24 00:18 | CT Scan Report ---
Exam(s): CT HEAD Without Contrast EXAM: CT Head Without Intravenous Contrast CLINICAL HISTORY: Reason for exam: fall.. TECHNIQUE: Axial computed tomography images of the head/brain without intravenous contrast. Automated exposure control was utilized for the study. A dose lowering technique was utilized adhering to the principles of ALARA. COMPARISON: No relevant prior studies available. FINDINGS: No acute intracranial hemorrhage. No midline shift or mass effect. The territorial cline-white matter differentiation is maintained throughout. Age-related cerebral volume loss. Periventricular and subcortical white matter hypoattenuation, consistent with chronic microangiopathy. The visualized orbits appear grossly unremarkable. The calvarium is intact. The visualized paranasal sinuses and mastoid air cells are grossly clear. IMPRESSION: No acute intracranial hemorrhage, midline shift, or mass effect. Electronically signed by: Saw Kaye MD 05/24/23 00:18 AM
[2023-05-24 04:48] LABS: Basophils # (auto) 0.02 K/uL (0.00-0.20); Basophils % (auto) 0.5 %; Hematocrit (blood only) 35.2 % (42.0-52.0); Hemoglobin 11.9 g/dl (14.0-18.0); Immature Granulocytes # (auto) 0.02 K/uL (0.01-0.20); Immature Granulocytes % (auto) 0.5 %; Lymphocytes # (auto) 0.55 K/uL (1.20-3.40); Lymphocytes % (auto) 12.7 %; Mean Corpuscular Hemoglobin 32.2 pg (25.0-34.0); Mean Corpuscular Hgb Conc 33.8 g/dL (32.0-36.0); Mean Corpuscular Volume 95.1 fL (80.0-100.0); Mean Platelet Volume 10.1 fL (9.4-12.4); Monocytes # (auto) 0.67 K/uL (0.11-0.59); Monocytes % (auto) 15.5 %; Neutrophils # (auto) 3.06 K/uL (1.40-6.50); Neutrophils % (auto) 70.8 %; Platelet Count 112 K/uL (130-400); RDW Coefficient of Variation 13.2 % (11.5-14.5); RDW Standard Deviation 45.8 fL (36.4-46.3); White Blood Count 4.32 K/ul (4.8-10.8)
[2023-05-24 04:55] LABS: BUN Creatinine Ratio 15.6 (10-20); Calcium 8.5 mg/dl (8.6-10.3); Creatinine Clr Calc Pharmacy 53.2 ml/min; Est GFR (Non-African American) 55.3 ml/min; Potassium 3.8 mmol/L (3.5-5.1)
[2023-05-24] MEDS: DOXYCYCLINE HYCLATE 100 MG in DEXTROSE 5% MINI-B 100 ML IV SCH (05:31)
[2023-05-24] MEDS: LEVOTHYROXINE SODIUM 75 MCG TABLET PO SCH (05:32)
[2023-05-24] MEDS: ALBUT/IPRATROP 3MG/0.5MG NEB 3 ML VIAL NEB SCH ×2 (05:54→09:50)
[2023-05-24] MEDS: SODIUM CHLOR 7% 4 ML NEB NEB SCH (05:54)
[2023-05-24] MEDS: ENALAPRIL MALEATE 10 MG TAB PO SCH (09:02)
[2023-05-24] MEDS: CALCIUM 600MG + VIT D 400 IU TAB PO SCH (09:02)
[2023-05-24] MEDS: CEROVITE ADV FORMULA TAB PO SCH (09:02)
[2023-05-24] MEDS: TAMSULOSIN HCL 0.4 MG CAP PO SCH (09:02)
[2023-05-24] MEDS: CEFEPIME 2,000 MG in SYRINGE 0 ML IV SCH (09:02)
[2023-05-24] MEDS: CHOLECALCIFEROL 1,000 UNITS 25 MCG TAB PO SCH (09:03)
[2023-05-24] MEDS: CITALOPRAM 20 MG TAB PO SCH (09:03)
[2023-05-24] MEDS: predniSONE 20 MG TAB PO SCH (09:03)
[2023-05-24] MEDS: PRIMIDONE 50 MG TAB PO SCH (09:03)
--- NOTE | 2023-05-24 11:20 | Discharge Summary ---
Discharge Summary Date of Service May 24, 2023 Notes For Next Care Provider Medication Changes From Visit cefdinir 300mg BID x 5 days Doxycycline 100mg BID x 5days Prednisone 40mg daily x 2 days Admission HPI Per Admitting Provider 82-year-old male with past medical history significant for hypertension, hypothyroidism, BPH, depression, obstructive sleep apnea, history of lung cancer status chemoradiation about a 1 and half year ago and no recurrence as per patient presents because of fevers , cough, runny nose and sore throat and bodyaches since yesterday. Patient not feeling good at all. Poor appetite. Very weak and tired. Seems recently was around grandchild who had rhinorrhea. States has chest pain while coughing. Denies shortness of breath. No nausea. No abdominal pain. Normal bowel movements. Says he has some urgency of micturition. Denies any burning micturition. Resting comfortably. Ambulates with cane Past medical history. As mentioned above Past surgical history back surgery Social history. Remote history of smoking. No alcohol. Lives with his . Family history. Father had diabetes. Mother had heart disease. Admission Exam Per Admitting Provider Physical Exam: General- Not in distress Head- atraumatic Eyes- PERRL. ENT- oropharynx clear Neck- supple, no JVD. Lungs- clear to auscultation b/l mild wheezing no crackles. Heart- regular rhythm; no murmur, no gallop. Abdomen- normal bowel sounds, soft, nontender, no distension. Extremities- pretibial edema present, no erythema seen. Neuro- alert, oriented x 3; PERRL, no facial palsy; no dysarthria; moves extremities. Skin- warm & dry Principal Dx & Hospital Course #1 = Principal Diagnosis (1) SIRS (systemic inflammatory response syndrome): 82-year-old male with past medical history significant for hypertension, hypothyroidism, BPH, depression, obstructive sleep apnea, history of lung cancer s/p chemoradiation about a 1 and half year ago and no recurrence as per patient admitted with pneumonia. Sepsis POA Pneumonia Patient presented to the hospital with fever, chills, sore throat and cough Lactic acid 2.1 on presentation repeat 1.2 after fluids Respiratory bio fire negative Lyme screen and Anaplasma screen negative Chest x-ray shows infiltrate on right midlung field. Cardiomegaly with vascular congestion. Blood cultureNGTD Urine culture3 types of organism all moderate count. Treated with cefepime and doxycycline. Transitioned on discharge to PO cefdinir and doxycycline for an additional 5 days. DuoNebs and hypertonic saline for airway clearance 5 days of PO prednisone as well. PCP followup. UTI Patient complaining of urgency Urine culture3 types of organism all moderate count. Treated with cefepime as above. Transitioned on discharge to PO cefdinir for an additional 5 days. PCP follow up. Thrombocytopenia No baseline labs to compare. Stable PCP follow up after discharge Lower extremity edema Echocardiogram shows EF of 50 to 55% with grade 1 diastolic dysfunction Stable RBBB EKG on admission showed normal sinus rhythm with right bundle branch block. No previous EKG to compare. Echocardiogram as above Obstructive sleep apnea CPAP nightly Hypertension Enalapril with holding parameters Stable Hypothyroidism On Synthyroid Follow TSH PCP followup BPH On Flomax, continue Depression On citalopram, continue Discharge Exam General: Alert, oriented. No acute distress Skin: No noted rashes or bruises Psych: Appropriate mood and affect Neuro: No gross deficits while moving in the bed HEENT: NC/AT Chest: Nontender to palpation. CV: RRR Resp: Breath sounds clear bilaterally, no increased effort of breathing. Abdomen: Soft, nontender, nondistended. No guarding. No organomegaly appreciated. Extremities: No edema in lower extremities bilaterally. Updated Medication List Medication Instructions Recorded Confirmed Type aspirin 81 mg tablet,delayed 81 mg PO HS 05/21/23 05/21/23 History release calcium carbonate 600 mg-vitamin 1 tab PO DAILY 05/21/23 05/21/23 History D3 10 mcg (400 unit) tablet (Calcium 600 + D(3)) cholecalciferol (vitamin D3) 25 25 mcg PO DAILY 05/21/23 05/21/23 History mcg (1,000 unit) capsule (Vitamin D3) citalopram 20 mg tablet 20 mg PO QAM 05/21/23 05/21/23 History enalapril maleate 20 mg tablet 20 mg PO QAM 05/21/23 05/21/23 History levothyroxine 75 mcg tablet 75 mcg PO QAM 05/21/23 05/21/23 History meloxicam 15 mg tablet 15 mg PO QAM 05/21/23 05/21/23 History mesalamine 0.375 gram 1.5 g PO QAM 05/21/23 05/21/23 History capsule,extended release 24 hr primidone 50 mg tablet 50 mg PO TID 05/21/23 05/21/23 History tamsulosin 0.4 mg capsule 0.4 mg PO QAM 05/21/23 05/21/23 History vitamin A-vitamin C-vit E-min 1 tab PO DAILY 05/21/23 05/21/23 History tablet cefdinir 300 mg capsule 300 mg PO BID #10 caps 05/24/23 Rx doxycycline hyclate 100 mg tablet 100 mg PO BID #10 tabs 05/24/23 Rx prednisone 20 mg tablet 40 mg (2 x 20 mg) PO DAILY #4 tabs 05/24/23 Rx Hospital Stay Data Consultations 05/21/23 23:55 ED Decision to Admit Stat Diagnostic Imagining Performed 05/23/23 23:20 CT head/brain wo con Stat Chest X-Ray 05/21/23 19:49 XR chest 1V portable CLINICAL HISTORY: Sepsis TECHNIQUE: Single frontal radiograph of the chest was obtained. Comparison: None available at the time of this dictation. FINDINGS: No lines and tubes are seen. Cardiomegaly is noted. The aortic arch is calcified. Prominence and cephalization of the vasculature is seen. No evidence of pleural effusion or pneumothorax. IMPRESSION: Cardiomegaly and mild pulmonary edema. Pneumonia is seen. ACT 112: Negative or not required by law. Electronically signed by: Ramone Hoffman M.D. 05/22/2023 9:[address] 05/23/23 23:20 Exam(s): CT HEAD Without Contrast EXAM: CT Head Without Intravenous Contrast CLINICAL HISTORY: Reason for exam: fall.. TECHNIQUE: Axial computed tomography images of the head/brain without intravenous contrast. Automated exposure control was utilized for the study. A dose lowering technique was utilized adhering to the principles of ALARA. COMPARISON: No relevant prior studies available. FINDINGS: No acute intracranial hemorrhage. No midline shift or mass effect. The territorial cline-white matter differentiation is maintained throughout. Age-related cerebral volume loss. Periventricular and subcortical white matter hypoattenuation, consistent with chronic microangiopathy. The visualized orbits appear grossly unremarkable. The calvarium is intact. The visualized paranasal sinuses and mastoid air cells are grossly clear. IMPRESSION: No acute intracranial hemorrhage, midline shift, or mass effect. Electronically signed by: Saw Kaye MD 05/24/23 00:18 AM Discharge Instructions Given to Patient (Per Discharging Provider) Mr. Feng, You were admitted and treated for a pneumonia. We treated you with about 2 days worth of IV antibiotics and we are discharging you with oral antibiotics for another 5 days. Please take as prescribed. We are also discharging you with 2 more days of oral prednisone 40mg as you received three days of treatment with it. Please keep close follow up with your primary care provider after discharge. Please do not hesitate to come back to the emergency room should your symptoms worsen or return. It was a pleasure taking care of you while you were here. Total Time Total Time Spent Total Time Spent (In Minutes): > 30 minutes
== END 2023-05-24 12:40 | disposition home or self-care (01) | DRG 871 ==
LOC: ED 19:03 → 4W 05-22 01:13 → INTOOBSV 05-22 01:13 → SUATTDRO 05-22 01:13 → 4W 05-22 02:43